=== PATIENT | male | born 1990 | race African-American/Black ===

== ENCOUNTER 2023-12-06 01:22 | Emergency (ER) | payer BC ==
[~2023-12-06] VITALS: Ht 180.3 cm; Wt 67.1 kg
[2023-12-06 01:33] VITALS: PULSE 68; RESP 20; TEMP 98.2
[2023-12-06] MEDS: TRAMADOL HCL 50 MG TAB PO STA (01:52)
[2023-12-06 03:48] VITALS: BP 140/98; PULSE 88; RESP 19; TEMP 98; O2SAT 100
[2023-12-06] MEDS ORDERED: ULTRAM 50MG50 MG PO (03:55)
== END 2023-12-06 04:05 | disposition home or self-care (01) ==
LOC: ER 01:26
DX: R07.89 Other chest pain (principal); M54.2 Cervicalgia; R10.9 Unspecified abdominal pain; V49.40XA Driver injured in collision with unspecified motor vehicles in traffic accident, initial encounter
CPT/HCPCS: 71250; 72125; 74176; 99283